=== PATIENT | female | born 2000 | race Caucasian/White ===

== ENCOUNTER 2024-07-17 17:33 | Emergency (ER) | payer MEDICAID ==
[~2024-07-17] VITALS: Ht 162.6 cm; Wt 90.9 kg
[2024-07-17 17:45] VITALS: TEMP 98.6
[2024-07-17 19:14] LABS: APPEARANCE,URINE CLEAR (CLEAR); BILIRUBIN,URINE NEGATIVE (NEGATIVE); COLOR,URINE YELLOW (YELLOW); GLUCOSE, URINE (UA) NEGATIVE (NEGATIVE); HCG,QUAL URINE NEGATIVE (NEGATIVE); KETONES,URINE 80-100 mg/dL (NEGATIVE); LEUKOCYTE ESTERASE ,URINE TRACE (NEGATIVE); NITRATE,URINE POSITIVE (NEGATIVE); OCCULT BLOOD,URINE SMALL (NEGATIVE); PROTEIN,URINE TRACE mg/dL (NEGATIVE); SPECIFIC GRAVITIY, URINE 1.029 (1.003-1.030); UROBILINOGEN,URINE <=1.0 mg/dL (<=1.0)
[2024-07-17 19:22] LABS: BACTERIA,URINE Many /HPF (None Seen); SQUAMOUS EPITHELIAL CELL,UR Moderate /LPF (None Seen)
[2024-07-17] MEDS ORDERED: CEFP200T12 PO (20:59)
[2024-07-17] MEDS ORDERED: PHEN-674 PO (20:59)
[2024-07-17] MEDS: IBUPROFEN 600 MG TABLET PO ONE (21:00)
[2024-07-17 21:22] VITALS: BP 118/69; PULSE 86; RESP 18; O2SAT 99
== END 2024-07-17 21:37 | disposition home or self-care (01) ==
LOC: EMS 17:33
DX: N39.0 Urinary tract infection, site not specified (principal); F12.90 Cannabis use, unspecified, uncomplicated; Z87.442 Personal history of urinary calculi
CPT/HCPCS: 81001; 84703; 87077; 87086; 87186; 99283